=== PATIENT | female | born 1980 | race Caucasian/White ===

== ENCOUNTER → 2022-04-13 | Outpatient (REF) | payer OTHER ==
[2022-04-13 17:17] LABS: CREATININE, URINE 244.8 MG/DL
== END ==
LOC: M LAB REF 16:30
PROVIDERS: ATTEND Physician Assistant
DX: E11.65 Type 2 diabetes mellitus with hyperglycemia (principal)

== ENCOUNTER 2022-08-16 11:16 | Day surgery (SDC) | payer MEDICARE, OTHER ==
[~2022-08-16] VITALS: Ht 165.1 cm; Wt 98.7 kg
[~2022-08-16 11:16] MED LIST: AMLO1TAB24 PO; ATOR1TAB21 PO; B6/F1CAP PO; FAMO20TA5 PO; GABA-282 PO; HYDR50TA70 PO; INSU100V6 SQ; IRBE300T7 PO; LEFL1TAB4 PO; MEDR150I12 IM; METF-838 PO; METO1TAB7 PO; NORT25CA2 PO; NS 1,000 ML IV ONE; PANT40TA29 PO; PIOG1TAB36 PO; RA M500C PO; RIME75TA PO; SEMA1PEN2 SQ; SERT50TA29 PO; SPIR-10 PO; TIZA2TA PO; VITMTA PO
[2022-08-16] MEDS ORDERED: LIDOCAINE 2% 100MG/5ML SDV (FOR ANES.) As Ordered ONE (13:07)
[2022-08-16] MEDS ORDERED: GLYCOPYRROLATE INJ 0.2 MG/ML 2 ML VIAL As Ordered ONE (13:07)
[2022-08-16] MEDS ORDERED: propofoL 200 MG/20 ML VIAL As Ordered ONE (13:07)
[2022-08-16 13:18] VITALS: TEMP 97.9
[2022-08-16 13:50] VITALS: BP 131/75; O2SAT 99
== END 2022-08-16 14:03 | disposition home or self-care (01) ==
LOC: M OPP 11:16
PROVIDERS: ATTEND Internal Medicine Gastroenterology
DX: K29.70 Gastritis, unspecified, without bleeding (principal); K22.4 Dyskinesia of esophagus; Q39.6 Congenital diverticulum of esophagus; Z87.891 Personal history of nicotine dependence; Z79.02 Long term (current) use of antithrombotics/antiplatelets; Z79.4 Long term (current) use of insulin; Z79.891 Long term (current) use of opiate analgesic; Z79.899 Other long term (current) drug therapy; Z88.0 Allergy status to penicillin; Z88.2 Allergy status to sulfonamides; Z91.018 Allergy to other foods

== ENCOUNTER → 2023-10-12 | Outpatient (REF) | payer MEDICARE, OTHER ==
[~2023-10-12] MED LIST changes: +IRBE300T25 PO; -IRBE300T7 PO; -LEFL1TAB4 PO; +LEFL20TA15 PO; -NS 1,000 ML IV ONE
== END ==
LOC: M LAB REF 16:15
PROVIDERS: ATTEND Physician Assistant
DX: R30.0 Dysuria (principal)